=== PATIENT | female | born 1960 | race Caucasian/White ===

== ENCOUNTER 2016-12-10 15:31 | Emergency (ER) | payer MEDICARE ==
[~2016-12-10] VITALS: Ht 152.4 cm; Wt 54.4 kg
[~2016-12-10 15:31] MED LIST: APAP/BUTALBITAL1 TA1 PO; LODINE400 MG PO; LORTAB 10/3251 TAB PO; METOPROLOL SUCC50 M2 PO; NORVASC 10MG. T10 MG PO; PAROXETINE20 M1 NG; PRILOSEC OTC20 MG PO
--- OUTSIDE RECORDS SUMMARY | 2016-12-10 15:46 | External Medical Summary Rpt | CCD ---
Author Author RANDY Address Unknown Phone [email or web address] Purpose Continuity of Care Document - through 2016
--- OUTSIDE RECORDS SUMMARY | 2016-12-10 15:46 | External Medical Summary Rpt ---
Author Author RANDY Production, [employer] Organization [employer] Address Unknown Phone Unavailable Results Cobalamin (Vitamin B12) [Mass/volume] in Serum Observa Value Referen Units Interpr Notes Date tion ce etation Range Cobalamin 211 - 946 pg/mL No Performed Aug 08 (Vitamin informati at: CB 2017 8:45 B12) on in - [facility] AM [Mass/vol source ume] in data [id number] Serum 0 [place], [place] [id number] [employer] Manager: Vincenzo Stafford PhD, Phone: [phone] Folate [Mass/volume] in Serum or Plasma Observa Value Referen Units Interpr Notes Date tion ce etation Range Folate >3.0 ng/mL No A serum Aug 08 [Mass/vol informati folate 2016 8:45 ume] in on in concentra AM Serum or source tion of Plasma data less than 3.1 ng/mL isconside red to represent clinical deficienc y.Perform ed at: CB - [facility] [id number] [place], [place] [id number] [employer] Manager: Vincenzo Stafford PhD, Phone: [phone] Comprehensive metabolic 2000 panel in Serum or Plasma Observa Value Referen Units Interpr Notes Date tion ce etation Range Albumin/G 1.1 - 1.8 No Normal No Aug 08 lobulin informati informati 2016 8:45 [Mass on in on in AM ratio] in source source Serum or data data Plasma Albumin 3.4 - 5.0 gm/dL Normal No Aug 08 [Mass/vol informati 2016 8:45 ume] in on in AM Serum or source Plasma data Alkaline 46 - 116 U/L Normal No Aug 08 phosphata informati 2016 8:45 se on in AM [Enzymati source c data activity/ volume] in Serum or Plasma Bilirubin 0.2 - 1.0 mg/dL Normal No Aug 08 .total informati 2016 8:45 [Mass/vol on in AM ume] in source Serum or data Plasma Urea 7 - 18 mg/dL Normal No Aug 08 nitrogen informati 2016 8:45 [Mass/vol on in AM ume] in source Serum or data Plasma Calcium 8.5 - mg/dL Normal No Aug 08 [Mass/vol 10.1 informati 2016 8:45 ume] in on in AM Serum or source Plasma data Chloride 98 - 107 mmoL/L Normal No Aug 08 [Moles/vo informati 2016 8:45 lume] in on in AM Serum or source Plasma data Carbon 21.0 - mmoL/L Normal No Aug 08 dioxide, 32.0 informati 2016 8:45 total on in AM [Moles/vo source lume] in data Serum or Plasma Creatinin 0.55 - mg/dL Normal No Aug 08 e 1.02 informati 2016 8:45 [Mass/vol on in AM ume] in source Serum or data Plasma Estimated 59- ML/MIN No REFERENCE Aug 08 informati RANGE: 2017 8:45 glomerula on in >60 AM r source ML/MIN/1. filtratio data 73 SQUARE n rate METERSIf (GF this patient is -A merican, then multiply theresult by 1.210. Globulin 1.3 - 3.2 gm/dL Normal No Aug 08 [Mass/vol informati 2016 8:45 ume] in on in AM Serum source data Glucose 74 - 106 mg/dL Normal No Aug 08 [Mass/vol informati 2016 8:45 ume] in on in AM Serum or source Plasma data Potassium 3.5 - 5.1 mmoL/L Normal No Aug 08 informati 2016 8:45 [Moles/vo on in AM lume] in source Serum or data Plasma Sodium 136 - 145 mmoL/L Normal No Jul 20 [Moles/vo informati 2016 8:45 lume] in on in AM Serum or source Plasma data Aspartate 15 - 37 U/L Low No Aug 08 informati 2016 8:45 aminotran on in AM sferase source [Enzymati data c activity/ volume] in Serum or Plasma Alanine 12 - 78 U/L Normal No Aug 08 aminotran informati 2016 8:45 sferase on in AM [Enzymati source c data activity/ volume] in Serum or Plasma Protein 6.4 - 8.2 gm/dL Normal No Aug 08 [Mass/vol informati 2017 8:45 ume] in on in AM Serum or source Plasma data Lipid 1996 panel in Serum or Plasma Observa Value Referen Units Interpr Notes Date tion ce etation Range Cholester < 200 mg/dL High No Jul 20 ol informati 2016 8:45 [Moles/vo on in AM lume] in source Unspecifi data ed specimen Cholester 40 - 60 MG/DL High No Jul 20 ol in HDL informati 2016 8:45 on in AM [Mass/vol source ume] in data Serum or Plasma Cholester 0 - 130 mg/dL High No Jul 20 ol in LDL informati 2016 8:45 on in AM [Mass/vol source ume] in data Serum or Plasma by calculati on Triglycer 30 - 200 mg/dL Normal No Jul 20 zi informati 2016 8:45 [Moles/vo on in AM lume] in source Serum or data Plasma Cholester 0 - 40 No Normal No Jul 20 ol in informati informati 2017 8:45 VLDL on in on in AM [Mass/vol source source ume] in data data Serum or Plasma Thyrotropin [Units/volume] in Serum or Plasma Observa Value Referen Units Interpr Notes Date tion ce etation Range Thyrotrop 0.358 - uIU/ml Normal No Aug 08 in 3.740 informati 2017 8:45 [Units/vo on in AM lume] in source Serum or data Plasma CBC W Auto Differential panel in Blood Observa Value Referen Units Interpr Notes Date tion ce etation Range Basophils 0 - 0.2 K/MM3 Normal No Jul 20 informati 2017 8:45 [#/volume on in AM ] in source Blood by data Automated count Basophils 0.1 - 2.0 % Normal No Jul 20 /100 informati 2016 8:45 leukocyte on in AM s in source Blood by data Automated count Eosinophi 0.0 - 0.4 K/mm3 Normal No Jul 20 ls informati 2016 8:45 [#/volume on in AM ] in source Blood by data Automated count Eosinophi 0.1 - % Normal No Aug 08 ls/100 12.0 informati 2016 8:45 leukocyte on in AM s in source Blood by data Automated count Granulocy 1.8 - 7.8 K/mm3 Normal No Jul 20 an informati 2016 8:45 [#/volume on in AM ] in source Blood by data Automated count Granulocy 37.0 - % Normal No Aug 08 an/100 80.0 informati 2017 8:45 leukocyte on in AM s in source Blood by data Automated count Hematocri 37.0 - % Normal No Aug 08 t [Volume 47.0 informati 2017 8:45 on in AM Fraction] source of Blood data Hemoglobi 12.2 - g/dL Normal No Aug 08 n 16.2 informati 2016 8:45 [Mass/vol on in AM ume] in source Blood data Lymphocyt 0.7 - 4.5 K/mm3 Normal No Aug 08 es informati 2017 8:45 [#/volume on in AM ] in source Unspecifi data ed specimen by Automated count Lymphocyt 10 - 50.0 % Normal No Aug 08 es informati 2016 8:45 [#/volume on in AM ] in source Unspecifi data ed specimen by Automated count Erythrocy 27 - 31.2 pg Normal No Aug 08 te mean informati 2016 8:45 corpuscul on in AM ar source hemoglobi data n [Entitic mass] Erythrocy 31.8 - g/dl Normal No Aug 08 te mean 35.4 informati 2016 8:45 corpuscul on in AM ar source hemoglobi data n concentra tion [Mass/vol ume] by Automated count Erythrocy 82.2 - fl Normal No Aug 08 te mean 97.8 informati 2017 8:45 corpuscul on in AM ar volume source [Entitic data volume] by Automated count Monocytes 0.1 - 1.0 K/mm3 Normal No Aug 08 informati 2016 8:45 [#/volume on in AM ] in source Blood by data Automated count Monocytes 1.7 - 9.3 % Normal No Jul 20 /100 informati 2017 8:45 leukocyte on in AM s in source Blood by data Automated count Platelet 7.4 - fl Normal No Aug 08 mean 10.4 informati 2017 8:45 volume on in AM [Entitic source volume] data in Blood by Automated count Platelets 142 - 424 K/mm3 Normal No Aug 08 informati 2017 8:45 [#/volume on in AM ] in source Blood data Erythrocy 4.2 - 5.4 M/mm3 Normal No Aug 08 an informati 2017 8:45 [#/volume on in AM ] in source Amniotic data fluid Erythrocy 11.5 - % Normal No [place] 20 te 17.5 informati 2017 8:45 distribut on in AM ion width source [Entitic data volume] by Automated count Leukocyte 4.8 - K/MM3 Normal No [place] 20 s 10.8 informati 2017 8:45 [#/volume on in AM ] in source Blood data
--- OUTSIDE RECORDS SUMMARY | 2016-12-10 15:46 | External Medical Summary Rpt | CCD ---
Author Author , RANDY PADILLA Address Unknown Phone [email or web address] Purpose Continuity of Care Document - 08-08-2016 through 2016 Results Labs Lab Lab Date Result Refere Interp Status Commen Order Detail nces retati t Range on Vit B12 SerPl-mCnc (11-29-2016 11:58) Vit B12 452 210-103 complet 017 pg/mL 3 ed SerPl-m 11:58 Cnc Folate SerPl-mCnc (11-29-2016 11:58) Folate 11.3 >4.8 complet SerPl-m 017 ng/mL ed Cnc 11:58 TSH SerPl DL<=0.005 mIU/L-aCnc (11-29-2016 11:58) TSH 1.00 0.4-4.2 complet SerPl 017 uIU/mL ed DL<=0.0 11:58 05 mIU/L-a Cnc T4 Free SerPl-mCnc (11-29-2016 11:58) T4 Free 1.5 0.8-1.7 complet 017 ng/dL ed SerPl-m 11:58 Cnc CRP SerPl-mCnc (11-29-2016 11:58) CRP 0.1 0-0.9 complet SerPl-m 017 mg/dL ed Cnc 11:58 Hcys SerPl-sCnc (11-29-2016 11:54) Hcys 10.9 complet SerPl-s 017 umol/L ed Cnc 11:54 ESR Bld Qn (11-29-2016 11:54) ESR Bld 18 0-20 complet Qn 017 mm/hr ed 11:54
--- OUTSIDE RECORDS SUMMARY | 2016-12-10 15:46 | External Medical Summary Rpt ---
[...] [facility] AM [Mass/vol source ume] in data [id number] Serum 0 [place], [place] [id number] Belt Loop Maker: Vincenzo Stafford PhD, Phone: [phone] Folate [Mass/volume] in Serum or Plasma Observa Value Referen Units Interpr Notes Date tion ce etation Range Folate >3.0 ng/mL No A serum Aug 08 [Mass/vol informati folate 2016 8:45 ume] in on in concentra AM Serum or source tion of Plasma data less than 3.1 ng/mL isconside red to represent clinical deficienc y.Perform ed at: CB - [facility] [id number] [place], [place] [id number] Belt Loop Maker: Vincenzo Stafford PhD, Phone: [phone] Comprehensive metabolic 2000 panel in Serum [...]
--- OUTSIDE RECORDS SUMMARY | 2016-12-10 15:46 | External Medical Summary Rpt | CCD ---
Demographics Preferred Language Syriac Marital Status Unknown Pentecostal Affiliation Unknown Race Unknown Ethnic Group Unknown Author Author , RANDY PADILLA Address Unknown Phone Immunization No patient found.
--- OUTSIDE RECORDS SUMMARY | 2016-12-10 15:46 | External Medical Summary Rpt | CCD ---
Author Author , RANDY PADILLA Address Unknown Phone [email or web address] Purpose Continuity of Care Document - 08-08-2016 [...]
--- OUTSIDE RECORDS SUMMARY | 2016-12-10 15:46 | External Medical Summary Rpt | CCD ---
Author Author RANDY Address Unknown Phone [email or web address] Purpose Continuity of Care Document - through 2016
--- OUTSIDE RECORDS SUMMARY | 2016-12-10 15:46 | External Medical Summary Rpt | CCD ---
Demographics Preferred Language Turkish Marital Status Unknown Sikh Affiliation Unknown Race Unknown Ethnic Group Unknown Author Author , RANDY PADILLA Address Unknown Phone Immunization No patient found.
[2016-12-10 16:04] VITALS: BP 155/77
--- NOTE | 2016-12-10 16:13 | Urgent Treatment Center Report ---
History of Present Issue Date/Time Seen by Provider 12/10/16 2467 Visit Reason Pt arrived:Walked Presenting Problem:R FOOT PAIN X6 MONTHS, SEEN PREVIOUSLY AT Location if Accident: Onset of symptoms date/time:/ or onset unknown for:MEDICAL HX UNKNOWN Have you (or family members/close friends) recently traveled outside the [place]? N If Yes, where/when: Have you had exposure to infectious disease within the past month? TB? Other? Specify: c/o pain right foot. Chronic x "at least 6 months" but worse x 2-3 days. Described as "burning, numb and on fire feeling". Same type of chronic pain but worse. Trouble sleeping at night due to pain despite Lyrica, gabapentin, soaking hot water, soaking cold water. Hx of neuropathy. Rx lyrica 75mg BID by PCP who also referred pt to vascular (Dr. Ayala), and neurology. Dr. Ayala started pt on gabapentin 300mg TID and pt report neurology said PCP needed to increase Lyrica so wondering if I can. Reports 4th and 5th digits are red and was told to report to ER if lost sensation or for purple/black discoloration. Called ER and they suggested pt be evaluated in [facility] first. Hx of DM and pt reports "they don't know yet if this is circulation or diabetes problem". Reports several different tests have been scheduled "but they are just taking their time with everything". thinks MRI in Feb 2017. Source patient Exam Limitations no limitations ALLERGIES Coded Allergies: No Known Allergies (05/13/15) Home Medications Active Scripts HYDROCODONE/ACETAMINOPHEN (Lortab 10-325 MG Tablet) 1 TAB PO QIDP PRN pain #16 TAB Prov: 05/13/15 Reported Medications PAROXETINE HCL (Paroxetine) 20 MG NG DAILY 30 Days AMLODIPINE BESYLATE (Norvasc) 10 MG PO DAILY History Medical History General CAD? No Angina: No MO: No Hypertension? Yes Hyperlipidemia? No CHF? No DVT? No PE? No COPD? Yes Asthma? No Anemia? No GERD? No Gastric ulcers? No GI Bleed? No Hernia? No Thyroid Problems? No Hypothyroidism? No CVA? No Seizures? No Diabetes? No Renal Insuffiency? No UTI? No Stones? No BPH? No GB Disease: No Nephritic Syndrome? No Asplenia? No Hepatitis? No Sickle Cell Disease? No Arthritis? Yes Migraines? Yes Cataracts? No Glaucoma? No MRSA? No HIV? No TB? No Anxiety? No Depression? Yes Cancer? No More? Yes Additional hx: LOW BLOOD SUGAR Immunization HX DT/Tetanus 1-4 YRS Surgical Hx Previous Surgery?Y HYSTERECTOMY-P COMPLETE HYST. HARSHA APPY UREDYAMANICS Family History Family HX Diabetes Yes CAD Yes Hypertension Yes Hyperlipidemia Yes Cancer Yes TB Yes Social History Smoking Hx Smoker: Never Smoker Tobacco: No Packs/day < 1 Pack Alcohol Alcohol: No Review of Systems All Other Systems Reviewed and Negative (as appropriate for CC) Constitutional denies chills, denies fever, denies malaise Respiratory denies shortness of breath Cardiovascular denies chest pain Gastrointestinal denies nausea Musculoskeletal see HPI Skin see HPI Psychiatric/Neurological see HPI Physical Exam Vital Signs Vital Signs Date Time Temp Pulse Resp B/P Pulse O2 O2 Flow FiO2 Ox Delivery Rate 12/10 1604 97.0 98 16 155/77 98 12/10 1539 97.0 98 16 155/77 98 General Appearance no apparent distress (seated in exam chair) Respiratory Status No: respiratory distress. Cardiovascular no peripheral edema Peripheral Pulses Pulses normal Yes (margy DP/PT equal, 2+) Extremities normal range of motion (right ankle and digits), no TTP right foot/ digits, mild generalized redness right 4th and 5th digits, <2sec cap refill in both, warm/same temp other digits of margy feet, reports decreased sensation of each right toe when tested Strength 5 Lower Ext (L), 5 Lower Ext (R) Neurologic alert, oriented x 3, sensory deficit (right toes), no motor deficit right foot/toes Skin intact, warm/dry Medical Decision Making LABS/Meds/Orders Pt receiving controlled substance in ED? No Consult MD Physician Consult Consult/PCP Dr. Mccoy, ER Time Called 1550 Reason Pt. Condition Comments With normal Neurovascular exam, Aside from adjusting chronic medication or starting new chronic medication such as elavil, no work-up or further evaluation to be done at this time unless toes/foot were to become cold, purple, blue or black. Departure Departure Time of Disposition 1605 Disposition DC Home or Self Care(routine) Clinical Impression Primary Impression: Neuropathy of right foot Condition STABLE Referrals SILVINA LINDA APRN (Family) Call first thing in morning for immediate follow up with either Dr. Jamie Cool ( vascular) or Neurology. Most immediate appointment would likely be with PCP. Patient Instructions Neuropathic Pain Additional Instructions LENGTHY discussion re: HPI, exam, and treatment options. Aware that I am not comfortable adjusting her chronic medication or starting her on a new chronic medication that will not provide immediate relief. Instead, she needs to monitor her toes VERY closely. Aware that if injured/cut, she may not be aware unless she was looking at it. Discussed complete visual foot exam every morning and night then periodically throughout the day with any new symptoms. Discussed how to monitor capillary refill and check temp of skin. Shoes AT ALL TIMES to prevent injury. Aware to seek treatment immediately for any cool toes or cool foot if in comparison with other foot, it is different. Seek immediate attention if toes become blue, purple, black or if cap refill is less then 4 seconds. MOST IMPORTANTLY, call PCP first thing in morning and report worsening symptoms and discuss increasing your lyrica with her if that is what the neurologist recommended. She would have access to those notes, I don't. Patient states + understanding and plans to call Silvina in the morning. Discharge Counseling Counseled pt/family regarding diagnosis, medications/RX, home care, follow up needs at [phone]
== END 2016-12-10 16:17 | disposition home or self-care (01) ==
LOC: UTC 15:31
DX: G57.91 Unspecified mononeuropathy of right lower limb (principal); E11.9 Type 2 diabetes mellitus without complications; I10 Essential (primary) hypertension